=== PATIENT | female | born 1975 ===

== ENCOUNTER 2024-08-01 10:23 | Inpatient (IN) | payer OTHER ==
[~2024-08-01] VITALS: Ht 167.6 cm; Wt 97.5 kg
[2024-08-01] MEDS ORDERED: IRON325 MG PO (11:24)
[2024-08-01 11:25] VITALS: BP 103/83
[2024-08-01 11:27] VITALS: BP 124/84
[2024-08-01 12:44] VITALS: BP 133/92
[2024-08-08 15:48] LABS: RH POSITIVE
[2024-08-11] MEDS ORDERED: CEFAZOLIN SODIUM 1,000 MG VIAL IV ONE (08:30)
[2024-08-11] MEDS ORDERED: POVIDONE-IODINE 118 ML BOTT TOP ONE (10:00)
[2024-08-11] MEDS ORDERED: HEMOSTATIC MATRIX 1 KIT KIT TOP SCH (10:00)
[2024-08-11] MEDS ORDERED: SUGAMMADEX SODIUM 200 MG/2 ML VIAL IV ONE (10:00)
[2024-08-11] MEDS ORDERED: ONDANSETRON HCL 2 MG/ML VIAL IV PRN (10:30)
[2024-08-11] MEDS ORDERED: MORPHINE SULFATE 4 MG/ML VIAL IV PRN (10:30)
[2024-08-11] MEDS ORDERED: RINGERS SOLUTION,LACTATED 1,000 ML IV SCH (10:45)
[2024-08-11] MEDS ORDERED: MORPHINE SULFATE 4 MG/ML VIAL IV ONE (11:40)
[2024-08-11] MEDS ORDERED: CEFAZOLIN SODIUM 1,000 MG VIAL IV SCH (12:00)
[2024-08-11] MEDS ORDERED: MORPHINE SULFATE 2 MG,MORPHINE SULFATE 4 MG IV SCH (12:00)
[2024-08-11 13:11] VITALS: BP 103/83
[2024-08-11 13:25] LABS: MEAN CELL VOLUME 81.2 fL (80.00-100.00); MEAN CORPUSCULAR HGB CONC 33.2 g/dl (32.0-36.0); PLATELET COUNT 164 K/uL (150-450); RED BLOOD COUNT 4.06 M/uL (4.00-6.00); RED CELL DISTRIBUTION WIDTH 18.9 % (11.5-14.5)
[2024-08-11 16:00] VITALS: BP 119/70
[2024-08-12] VITALS: BP 117/70
[2024-08-12] MEDS ORDERED: IBUprofen 800 MG TABLET PO PRN (06:45)
[2024-08-12] MEDS ORDERED: GABAPENTIN 300 MG CAPSULE PO PRN (06:45)
[2024-08-12 07:58] VITALS: BP 119/72
[2024-08-12] MEDS ORDERED: ENOXAPARIN SODIUM 40 MG/0.4 ML SYRINGE SUBCUTANEO SCH (09:00)
[2024-08-12 15:57] VITALS: BP 136/80
[2024-08-13 00:29] VITALS: BP 119/79
[2024-08-13] MEDS ORDERED: GABAPENTIN300 MG PO (06:16)
[2024-08-13] MEDS ORDERED: IBUPROFEN800 MG PO (06:16)
[2024-08-13 08:00] VITALS: BP 116/77
== END 2024-08-13 08:39 | disposition home or self-care (01) | DRG 743 ==
LOC: OB/GYN 08-11 05:30 → O/R 08-11 05:30 → SURH 08-11 08:45 → OB/GYN 08-11 11:31 → O/R 08-11 14:39 → OB/GYN 08-11 14:40
PROVIDERS: ADMIT Obstetrics & Gynecology Gynecology; ATTEND Obstetrics & Gynecology Gynecology
PROC: 0UT70ZZ Resection of Bilateral Fallopian Tubes, Open Approach (ICD-10-PCS; 2024-08-11)
PROC: 0USG0ZZ Reposition Vagina, Open Approach (ICD-10-PCS; 2024-08-11)
PROC: 0UT90ZZ Resection of Uterus, Open Approach (ICD-10-PCS; principal; 2024-08-11 08:45)
DX: D25.1 Intramural leiomyoma of uterus (principal); D25.2 Subserosal leiomyoma of uterus; D25.0 Submucous leiomyoma of uterus; N72 Inflammatory disease of cervix uteri; N80.03 Adenomyosis of the uterus